=== PATIENT | female | born 1970 | race Caucasian/White ===

== ENCOUNTER 2018-12-09 21:02 | Emergency (ER) | payer SELFPAY ==
[~2018-12-09] VITALS: Ht 154.9 cm; Wt 56.8 kg
[2018-12-09 21:10] VITALS: TEMP 98.4
[2018-12-09 21:47] LABS: BASO % 0.4 % (0.0-2.0); EOS # 0.1 (0.0-0.7); EOS % 0.8 % (0-4.0); GRAN % 67.3 % (42.2-75.2); LYMPH # 2.5 (1.2-3.4); LYMPH % 24.3 % (20.0-51.0); MEAN CELL VOLUME 94 fl (80.0-100.0); MEAN CORPUSCULAR HEMOGLOBIN 32 pg (27.0-31.0); MEAN CORPUSCULAR HGB CONC 34 g/dl (33.0-37.0); MEAN PLATELET VOLUME 8.8 fl (7.4-10.4); MONO # 0.7 (0.1-0.6); MONO % 6.8 % (1.7-9.3); PLATELET COUNT 354 K/mm3 (130-400); RED BLOOD COUNT 3.76 M/mm3 (4.10-5.30); REDCELL DISTRIBUTION WIDTH-CV 12.2 % (11.5-14.5)
[2018-12-09 21:49] LABS: HEMATOCRIT 35.2 % (37.0-47.0)
[2018-12-09 21:56] LABS: ALANINE AMINOTRANSFERASE 14 U/L (9-52); ALBUMIN 4.4 gm/dL (3.5-5.0); ALKALINE PHOSPHATASE 40 U/L (50-136); ANION GAP 10 mmol/L (7-16); AST,SGOT 21 U/L (15-37); BILIRUBIN,TOTAL 0.4 mg/dL (0.0-1.0); BLOOD UREA NITROGEN 13 mg/dL (7-17); CALCIUM 9.2 mg/dL (8.4-10.2); CARBON DIOXIDE 25 mmol/L (22-30); CHLORIDE 105 mmol/L (98-107); CREATINE KINASE 131 U/L (30-135); CREATININE, serum 0.76 (0.52-1.25); GLUCOSE 83 mg/dL (74-106); POTASSIUM 3.5 mmol/L (3.4-5.0); SODIUM 140 mmol/L (137-145); TOTAL PROTEIN 7.3 gm/dL (6.4-8.2)
[2018-12-09 22:32] LABS: TROPONIN-I < 0.012 ng/mL (0.000-0.035)
[2018-12-09 23:35] VITALS: BP 114/80; PULSE 80
== END 2018-12-09 23:35 | disposition short-term general hospital (02) ==
LOC: COL.ER 21:02
PROVIDERS: Emergency Medicine
DX: T75.4XXA Electrocution, initial encounter (principal); R00.2 Palpitations; F17.210 Nicotine dependence, cigarettes, uncomplicated; Z98.51 Tubal ligation status; Z23 Encounter for immunization
CPT/HCPCS: J2270; J2405; J7030